=== PATIENT | female | born 1975 | race American Indian/Alaskan Native ===

== ENCOUNTER 2018-08-09 15:06 | Outpatient (CLI) | payer OTHER ==
--- NOTE | 2018-08-09 12:28 | Emergency Department Report ---
ED Syncope HPI - General Chief Complaint: Syncope Stated Complaint: DIZZINESS/SYNCOPY Time Seen by Provider: 08/09/18 12:24 - History of Present Illness Initial Comments: Patient is a 42-year-old female that presents emergency room with a syncopal episode times one. Patient states she was sitting in a salon chair having her hair done and she stood up and passed out. Patient states that the other people in the salon Called EMS. Patient states that the loss of consciousness was brief moment as witnessed by the people in the salon. Patient denies head trauma. Patient denies pain. Patient denies abdominal pain. Patient states she is 35 weeks . Patient states with her past pregnancies she had syncopal episodes and dizziness in the third trimester. Patient states she is dizzy all morning and felt a little better after eating and drinking some water but then passed out. Patient denies chest pain. Patient's only symptom prior to passing out as dizziness and lightheadedness. Patient denies shortness of b reath. Patient has fever and chills. Patient denies abdominal pain. Patient denies fluid per vagina. Patient denies vaginal bleeding. Patient states she still feeling the baby move. Patient denies contraction. Patient is a Timing/Prior Episodes: single episode today, remote history Precipitating Factors: Positive: lightheadedness Context: standing Loss of Consciousness: brief (seconds) Current Symptoms: dizziness, lightheadedness. denies: blurred vision, chest pain, diaphoresis, headache, injury, loss of bladder control, loss of bowel control, motionless, nausea, pale, shallow/rapid breathing, weak/absent pulse, weakness - Related Data Allergies/Adverse Reactions: Allergies No Known Allergies Allergy (Unverified 08/09/18 12:04) ED Review of Systems ROS: Stated complaint: DIZZINESS/SYNCOPY Other details as noted in HPI Constitutional: denies: chills, fever Eyes: denies: eye pain, eye discharge, vision change ENT: denies: ear pain, throat pain Respiratory: denies: cough, shortness of breath, wheezing Cardiovascular: denies: chest pain, palpitations Endocrine: no symptoms reported Gastrointestinal: denies: abdominal pain, nausea, diarrhea Genitourinary: denies: urgency, dysuria, discharge Musculoskeletal: denies: back pain, joint swelling, arthralgia Skin: denies: rash, lesions Neurological: as per HPI, vertigo. denies: headache, weakness, paresthesias Psychiatric: denies: anxiety, depression Hematological/Lymphatic: denies: easy bleeding, easy bruising ED Past Medical Hx - Past Medical History Previous Medical History?: No - Surgical History Past Surgical History?: No - Family History Family history: no significant - Social History Smoking Status: Never Smoker Substance Use Type: None ED Physical Exam - General Limitations: No Limitations General appearance: alert, in no apparent distress - Head Head exam: Present: atraumatic, normocephalic - Eye Eye exam: Present: normal appearance, PERRL Pupils: Present: normal accommodation - ENT ENT exam: Present: mucous membranes moist - Neck Neck exam: Present: normal inspection - Respiratory Respiratory exam: Present: normal lung sounds bilaterally. Absent: respiratory distress - Cardiovascular Cardiovascular Exam: Present: regular rate, normal rhythm. Absent: systolic murmur, diastolic murmur, rubs, gallop - GI/Abdominal GI/Abdominal exam: Present: soft, distended (gravid abdomen noted), normal bowel sounds. Absent: tenderness, guarding, rebound - Extremities Exam Extremities exam: Present: normal inspection - Back Exam Back exam: Present: normal inspection - Neurological Exam Neurological exam: Present: alert, oriented X3 - Psychiatric Psychiatric exam: Present: normal affect, normal mood - Skin Skin exam: Present: warm, dry, intact, normal color. Absent: rash ED Course Vital Signs 08/09/18 08/09/18 12:00 12:01 Temperature 98 F Pulse Rate 109 H Respiratory 20 16 Rate Blood Pressure 146/76 [Left] O2 Sat by Pulse 98 99 Oximetry - Reevaluation(s) Reevaluation #1: Discussed all results with patient. Patient states she is feeling good. Patient has urinated in the ER. The patient will be discharged and sent to the mother-baby floor for evaluation of the baby. Patient instructed to increase water. Patient given discharge instructions. Patient to continue vitamin. Patient voiced understanding of all discharge instructions. 08/09/18 14:32 ED Medical Decision Making - Lab Data Result diagrams: 08/09/18 12:43 08/09/18 12:43 - Medical Decision Making Patient is a 42-year-old female that is emergency room with complaints of syncopal episode. Patient had a brief loss of consciousness. Entire episode was witnessed. Patient stable. Patient slapped on unremarkable. Patient's findings consistent with dehydration. Patient instructed increase water. Patient instructed to follow up with [facility] as soon as possible. Patient will be discharged from the ER and sent to the mother-baby floor for further evaluation of baby. Discussed discharge with patient and family. - Differential Diagnosis syncope. Dehydration. . Critical care attestation.: If time is entered above; I have spent that time in minutes in the direct care of this critically ill patient, excluding procedure time. ED Disposition Clinical Impression: Dizziness, Dehydration Syncope Qualifiers: Syncope type: unspecified Qualified Code(s): R55 - Syncope and collapse Qualifiers: Weeks of gestation: 35 weeks Qualified Code(s): Z3A.35 - 35 weeks gestation of Disposition: TO HOME OR SELFCARE Is pt being admited?: No Does the pt Need Aspirin: No Condition: Stable Instructions: Syncope (ED), (ED) Additional Instructions: Patient to follow-up with primary care in 2-3 days. Patient to follow-up with [facility] in 2-3 days. Patient to take Tylenol when necessary for pain. Patient to return to ER if condition worsens. Patient to take meds as directed. Patient to increase water. Patient to rest. Patient to continue vitamin. Patient to continue all meds. Patient will be discharged and sent to the mother-baby floor immediately for further evaluation of the baby. Referrals: DAMION ROGER MD [Primary Care Provider] - 2-3 Days Time of Disposition: 14:31
[2018-08-09 12:29] LABS: Bacteria,Urine 2+ /HPF (Negative); Bilirubin,Urine NEG (Negative); Blood,Urine NEG (Negative); Color,Urine Yellow (Yellow); Mucus,Urine 2+ /HPF; Protein,Urine <15 mg/dL mg/dL (Negative); Urobilinogen,Urine < 2.0 mg/dL (<2.0)
[2018-08-09 12:59] LABS: Basophils % (Auto) 0.2 % (0.0-1.8); Eosinophils % (Auto) 0.2 % (0.0-4.3); Hematocrit 38.2 % (30.3-42.9); Hemoglobin 13.2 gm/dl (10.1-14.3); Lymphocytes # (Auto) 1.4 K/mm3 (1.2-5.4); Lymphocytes % (Auto) 14.6 % (13.4-35.0); Mean Corpuscular HGB Conc 35 % (30-34); Mean Corpuscular Volume 78 fl (79-97); Monocytes # (Auto) 0.7 K/mm3 (0.0-0.8); Monocytes % (Auto) 6.9 % (0.0-7.3); Platelet Count 226 K/mm3 (140-440); Red Cell Distribution Width 16.2 % (13.2-15.2)
[2018-08-09 13:22] LABS: Alanine Aminotransferase 8 units/L (7-56); Albumin 3.8 g/dL (3.9-5); BUN/Creatinine Ratio 20; Blood Urea Nitrogen 8 mg/dL (7-17); Calcium 9.7 mg/dL (8.4-10.2); Hemolysis Index 21
[~2018-08-09 15:06] MED LIST: NACL 0.9% 1000 ML 1,000 ML IV ONE
[2018-08-09 15:22] VITALS: BP 119/59
== END 2018-08-09 15:51 | disposition home or self-care (01) ==
LOC: TRG 15:06 → EDSTATUS 15:07 → TRG 15:51
PROVIDERS: ATTEND Obstetrics & Gynecology
DX: O26.893 Other specified pregnancy related conditions, third trimester (principal); R55 Syncope and collapse; O09.523 Supervision of elderly multigravida, third trimester; Z3A.35 35 weeks gestation of pregnancy
CPT/HCPCS: 36415; 59025; 80053; 81001; 85025; 96360; J7030